=== PATIENT | female | born 1980 | race Caucasian/White ===

== ENCOUNTER 2016-04-12 12:46 | Emergency (ER) | payer OTHER ==
[~2016-04-12] VITALS: Ht 149.9 cm; Wt 90.7 kg
[~2016-04-12 12:46] MED LIST: AFRIN PUMPMIST15 ML NASB; ALBUTEROL0.09 MG/A1 INH; AMOXIL 875 MG875 MG PO; AMOXIL500 MG PO; AUGMENTIN 875 M1 TAB PO; DEPO-PROVE150 MG/11 IM; HYDROXYZINE50 MG PO; MOTRIN 600 MG600 MG PO; NAPROXEN375 M2 PO; PREDNISONE 10MG10 M1 PO; PREDNISONE 20MG20 MG PO; TESSALON PERLE100 MG PO; ZITHROMAX Z-PA250 M1 PO
[2016-04-12 13:00] VITALS: BP 149/78
[2016-04-12] MEDS ORDERED: HYDROXYZINE HCL50 M1 PO (14:24)
[2016-04-12] MEDS ORDERED: DELTASONE20 MG PO (14:24)
--- NOTE | 2016-04-12 14:24 | ED SKIN/ALLERGY COMPLAINT ---
History of Present Illness General Chief Complaint: Skin Rash/ Abcess Stated Complaint: RASH Source: patient Exam Limitations: no limitations Vital Signs & Intake/Output Vital Signs & Intake/Output Vital Signs Date Time Temp Pulse Resp B/P Pulse O2 O2 Flow FiO2 Ox Delivery Rate 04/12 1300 97.4 84 14 149/78 99 Room Air Allergies Coded Allergies: poison arleen extract (Mild, RASH 03/31/15) Reconcile Medications Hydroxyzine HCl 50 MG TABLET 1 TAB PO TID RASH Medroxyprogesterone Acetate (Depo-Provera) 150 MG/1 ML SYRINGE 1 ML IM Q3M CONTROL (Reported) Prednisone (Deltasone) 20 MG TABLET 1 TAB PO BID RASH Triage Note: 35 Y/O FEMALE C/O RASH TO ABDOMEN, CHEST AND BACK X A FEW MONTHS. STATES IT GETS BETTER AND WORSE. PT STATES SHE TRIED HYDROCORTISONE CREAM WITH NO RELIEF. Triage Nurses Notes Reviewed? yes Onset: Abrupt Duration: week(s): (1) Timing: recent history Location: generalized No Modifying Factors: none : No Patient currently breastfeeds: No HPI: 35-year-old female comes into emergency room for further evaluation of generalized rash on trunk has been going on for the past week. Itching. Red. Denies any fever chills. Denies any prior history of this. Denies any new foods. Denies any new skin care products. Denies any new sleeping environment. Denies any other associated symptoms. (VANESA CHAUHAN) Past History Travel History Traveled to [place] past 21 day No Medical History Any Pertinent Medical History? see below for history Neurological: NONE EENT: otitis media Cardiovascular: NONE Respiratory: NONE Gastrointestinal: NONE Hepatic: NONE Renal: NONE Musculoskeletal: NONE Psychiatric: NONE Endocrine: NONE Blood Disorders: NONE Cancer(s): NONE ROUTE SALESMAN/Reproductive: NONE Other Medical Hx: poison arleen Surgical History Surgical History: Psychosocial History What is your primary language Gibraltarian Tobacco Use: Current Daily Use Daily Tobacco Use Amount/Type: => 5 Cigarettes daily Family History Hx Contributory? No (VANESA CHAUHAN) Review of Systems Review of Systems Constitutional: Reports: no symptoms. EENTM: Reports: no symptoms. Respiratory: Reports: no symptoms. Cardiovascular: Reports: no symptoms. GI: Reports: no symptoms. Genitourinary: Reports: no symptoms. Musculoskeletal: Reports: no symptoms. Skin: Reports: see HPI. Neurological/Psychological: Reports: no symptoms. Hematologic/Endocrine: Reports: no symptoms. Immunologic/Allergic: Reports: no symptoms. All Other Systems: Reviewed and Negative (VANESA CHAUHAN) Physical Exam Physical Exam General Appearance: well developed/nourished, mild distress Head: atraumatic Eyes: Bilateral: normal appearance. Ears, Nose, Throat: normal ENT inspection, hearing grossly normal Neck: normal inspection Respiratory: no respiratory distress Back: normal inspection Extremities: normal inspection, normal range of motion, no edema Neurologic/Psych: awake, alert, oriented x 3, normal mood/affect Skin: intact, rash Skin Problem Location: generalized, torso Skin Problem Character: erythema, papules Lymphatic: no anterior cervical marilou (VANESA CHAUHAN) Progress Differential Diagnosis: abscess/cellulitis, allergic reaction, anaphylaxis, contact dermatitis, lyme disease, piyriasis rosea, scarlet fever, shingles, urticaria Plan of Care: 04/12/2016 2:56:37 PM 35-year-old female with nonspecific skin rash. Patient started on oral steroids and recommended follow-up with primary care doctor for further evaluation in one week. Return if any other concerns worsening symptoms. Patient is nontoxic- appearing and in no apparent distress upon discharge. Clinically looks well. Patient agrees with plan of care. (VANESA CHAUHAN) Departure Departure Disposition: HOME OR SELF CARE Condition: Stable Clinical Impression Primary Impression: Rash and nonspecific skin eruption Referrals: SHANEKA HALL MD (PCP/Family) Departure Forms: Customer Survey General Discharge Information Prescriptions: Current Visit Scripts Prednisone (Deltasone) 1 TAB PO BID #10 MG Hydroxyzine HCl 1 TAB PO TID #30 TAB (VANESA CHAUHAN) PA/LEARNING DESIGN SPECIALIST Co-Sign Statement Statement: ED Attending supervision documentation- [] I saw and evaluated the patient. I have also reviewed all the pertinent lab results and diagnostic results. I agree with the findings and the plan of care as documented in the PA's/LEARNING DESIGN SPECIALIST's documentation. xemergency I have reviewed the ED Record and agree with the PA's/LEARNING DESIGN SPECIALIST's documentation. [] Additions or exceptions (if any) to the PAs/LEARNING DESIGN SPECIALIST's note and plan are summarized below: [] (MICHEAL REYES MD)
== END 2016-04-12 14:30 ==
LOC: ERH 12:46
DX: R21 Rash and other nonspecific skin eruption (principal)